=== PATIENT | female | born 1985 | race Caucasian/White ===

== ENCOUNTER 2019-05-05 16:24 | Emergency (ER) | payer BC ==
[2019-05-05 16:59] VITALS: BP 142/62
--- NOTE | 2019-05-05 17:16 | UC ---
Respiratory Complaint HPI - HPI Summary HPI Summary: 33-year-old female presenting with cough and chest congestion "on and off since January." Cough is nonproductive. Notes shortness of breath with coughing and on exertion sometimes. Denies URI symptoms. Denies fever and chills. Denies nausea and vomiting. Patient states she was treated for similar symptoms in early March and that the cough resolved. States cough came back and has been persistent for the last 2 weeks. Taking allergy medications an inhaler with some relief. 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 States she still in contact with the allergen and states that they "just got an programmer operator numerical control." Denies h/o asthma. Nonsmoker. - History of Current Complaint Chief Complaint: UCGeneralIllness Stated Complaint: COUGH/CONGESTION/SORE THROAT Time Seen by Provider: 05/05/19 17:14 Hx Obtained From: Patient Pain Intensity: 0 - Allergies/Home Medications Allergies/Adverse Reactions: Allergies Allergy/AdvReac Type Severity Reaction Status Date / Time alston Allergy Difficulty Uncoded 05/05/19 17:00 Breathing Home Medications: Home Medications Albuterol HFA INHALER* [Ventolin HFA Inhaler*] 1 puff INH Q4H PRN 05/05/19 [ History Confirmed 05/05/19] Escitalopram Oxalate [Lexapro 10 mg] 50 mg PO DAILY 05/05/19 [History Confirmed 05/05/19] hydrOXYzine HCL TAB* [Atarax TAB 50 MG *] 50 mg PO BEDTIME 05/05/19 [History Confirmed 05/05/19] PMH/Surg Hx/FS Hx/Imm Hx - Surgical History Surgical History: None - Family History Known Family History: Positive: Non-Contributory - Social History Alcohol Use: Rare Substance Use Type: None Smoking Status (MU): Never Smoked Tobacco Review of Systems All Other Systems Reviewed And Are Negative: Yes Constitutional: Positive: Negative ENT: Positive: Negative Respiratory: Positive: Shortness Of Breath, Cough Cardiovascular: Positive: Negative Gastrointestinal: Positive: Negative Musculoskeletal: Positive: Negative Neurological: Positive: Negative Physical Exam - Summary Physical Exam Summary: Vital Signs Reviewed: Yes A+Ox3, no distress Eyes: Conjunctiva Clear ENT: Hearing grossly normal, TM x 2 clear, moist, uvula midline, no exudate, no erythema Neck: Positive: Supple Respiratory: Positive: No respiratory distress, No accessory muscle use + diffuse inspiratory wheezing, no rhonchi, no crackles Cardiovascular: RRR nl s1, s2 no m/r Musculoskeletal Exam: ALBERTS x 4 without difficulty Neurological: Positive: Alert Psychological: Positive: age appropriate behavior Skin: Positive: no rash, no ecchymosis Vital Signs: Initial Vital Signs Temp 98.2 F 05/05/19 16:52 Pulse 99 05/05/19 16:52 Resp 18 05/05/19 16:52 BP 142/62 05/05/19 16:52 Pulse Ox 100 05/05/19 16:52 Diagnostics - Radiology CXR Radiology Interpretation Completed By: Radiologist Summary of Radiographic Findings: IMPRESSION: NO ACTIVE CARDIOPULMONARY DISEASE. Respiratory Course/Dx - Course Course Of Treatment: Discussed with patient negative CXR. Educated on viral illness vs. allergic etiology. Instructed to continue with allergy medications and use of inhaler and to avoid allergens as much as possible. I also provided patient with short course of prednisone. Instructed to follow up with pcp or [facility] connections if symptoms persist. Patient voiced understanding and agreed with treatment plan. - Differential Dx/Diagnosis Differential Diagnosis/HQI/PQRI: Asthma, Bronchitis Provider Diagnosis: Acute bronchospasm, Diffuse wheezing Discharge ED - Sign-Out/Discharge Documenting (check all that apply): Patient Departure All imaging exams completed and their final reports reviewed: Yes - Discharge Plan Condition: Stable Disposition: HOME Prescriptions: predniSONE [Prednisone 20 MG TAB] 40 mg PO DAILY #10 tablet Patient Education Materials: Allergies (ED), Bronchospasm (ED) Referrals: [facility] [Outside] Additional Instructions: Take prednisone as prescribed. Continue use of allergies medications, including nasal spray and eye drops. Limit contact with allergens as much as possible. Use your inhaler as needed for shortness of breath. Follow up with your primary care provider or the [facility] clinic listed below if symptoms persist or worsen. - Billing Disposition and Condition Condition: STABLE Disposition: Home - Attestation Statements Provider Attestation: I was available for consult. This patient was seen by the [facility]. The patient was not presented to, seen by, or examined by me. -Zuri
== END 2019-05-05 18:30 | disposition home or self-care (01) ==
LOC: UCCORT 16:24
DX: J98.01 Acute bronchospasm (principal); R06.2 Wheezing; Z91.09 Other allergy status, other than to drugs and biological substances
CPT/HCPCS: 71046; 99202; G0463